=== PATIENT | female | born 1980 | race Caucasian/White ===

== ENCOUNTER 2018-08-28 07:35 | Emergency (ER) | payer OTHER ==
[2018-08-28] MEDS ORDERED: HYDROcodone/ACETAMIN 5-325 MG* 1 TAB PO ONE (08:13)
--- OUTSIDE RECORDS SUMMARY | 2018-08-28 08:26 | XMS REPORT ---
:1980 External Reference #:[id number] Author Organization [facility] Address [address] [place] [address] [place] [address] Phone [phone] Care Team Providers Name Role Phone Bird Dumont MD Primary Care Physician Unavailable Payers Type Date Identification Numbers Payment Provider Subscriber Commercial Policy Number: [id number] [employer] Insurance Will Cb GonzalezPang Group Number: [id number] [address] PayID: [id number] LivermoreSUSY Squires [phone] Medigap Part B Effective: Policy Number: Aet[employer] Insurance Johnnie Lopez 2016 [id number] Gee Expires: 2017 Group Number: [id number] [address] PayID: [id number] SUSY Ceballos [phone] Problems Date Description Provider Status Onset: 06/27/2018 Motion sickness, initial encounter Bird Dumont M.D. Active Onset: 06/27/2018 Mild recurrent major depression Bird Dumont M.D. Active Onset: 05/14/2015 Depressive disorder Bird Dumont M.D. Active Family History Date Family Member(s) Problem(s) Comments General Heart Disease General Diabetes Father Hypertension Father Diabetes Type II Father Hypercholesterolemia Paternal Grandmother due to Heart Disease () Maternal Grandfather due to Heart Disease () Maternal Grandmother due to Alcohol Related () Social History Type Date Description Comments Lives With Occupation Currently Working ETOH Use Denies alcohol use Recreational Drug Use Denies Drug Use Smoking Patient has never smoked Exercise Type/Frequency Exercises regularly Allergies, Adverse Reactions, Alerts Date Description Reaction Status Severity Comments 05/14/2015 Tetracycline active 05/14/2015 Erythromycin active 05/14/2015 Neomycin active 05/14/2015 Latex active Medications Medication Date Status Form Strength Qnty SIG Indications Ordering Provider Percocet 08/15/ Active Tablets 5-325mg 20tabs 1 tab by 2017 mouth F every 4-6 Charlie, hours as MD needed pain Percocet 08/03/ Active Tablets 5-325mg 30tabs 1 - 2 2017 tabs by F mouth Charlie, every 4 - MD 6 hours as needed for pain. Aspirin Ec 08/03/ Active Tablets DR 325mg 30tabs take 1 2017 tab by F mouth bid Charlie, every day MD x 14 days. with food. Keflex 08/03/ Active Capsules 500mg 21caps take 1 2017 tab by F mouth 3 Charlie, times a MD day x 7 days until finished. Bupropion HCL 05/14/ Active Tablets ER 150mg 90tabs take 3 F32.9 Bird ER (XL) 2014 24HR tablets Pachikara by mouth , M.D. every morning with food Citrucel / Active Tablets 500mg 2 tabs Unknown 0000 twice a day as needed Motrin Ib / Active Tablets 200mg 1-2 twice Unknown 0000 a day as needed prn Multi For Her / Active Tablets once a Unknown 0000 day Naproxen 00/ Active Tablets 250mg take 1 Unknown 0000 tab every 12 hours as needed for pain. Naproxen 03/24/ Hx Tablets 500mg 24tabs take one M75.51 Neal 2017 - tablet by F 07/31/ mouth Charlie, 2017 every 12 MD hours for 14 days. take with food. Amoxicillin/Cl 01/22/ Hx Tablets 875-125mg 20tabs 1 by Bird dobbs 2017 - mouth Pachikara Potassium 05/18/ twice a , M.D. 2017 day Naproxen 06/10/ Hx Tablets 500mg 60tabs 1 by M79.671 Neal 2016 - mouth F 07/18/ twice a Charlie, 2016 day as MD needed pain Amoxicillin/Cl 12/17/ Hx Tablets 875-125mg 20tabs take one J01.90 Dalton dobbs 2016 - tablet DENIZ Salas Potassium 12/27/ q12 hours 2017 for 10 days Fluticasone 12/17/ Hx Suspension 50mcg/Act 48gm 2 sprays J01.90 Dalton Propionate 2016 - each DENIZ Salas 04/07/ nostril 2016 qd. x 2 weeks Benzonatate 09/30/ Hx Capsules 100mg 30caps one by J06.9 Bisi 2015 - mouth Varn, 10/10/ three N.P. 2016 times daily as needed for cough Fluticasone 09/30/ Hx Suspension 50mcg/Act 9.900m 2 sprays J06.9 Bisi Propionate 2015 - l each Varn, 10/10/ nostril N.P. 2016 daily until well Escitalopram 08/24/ Hx Tablets 5mg 30tabs 1 by F32.9 Bird Oxalate 2015 - mouth Pachikara 12/17/ every day , M.D. 2017 x 1 week then 2 tab daily has not started yet Amoxicillin 11/22/ Hx Capsules 250mg 30caps 1 tab by J01.90 Chen 2015 - mouth 3 Londono, 04/23/ times per M.D. 2015 day every Wellbutrin XL / Hx Tablets ER 150mg 3 by Unknown 0000 - 12HR mouth 05/29/ every day 2014 Probiotic / Hx Capsules 1 by Unknown 0000 - mouth 06/26/ every day 2017 Medications Administered in Office Medication Date Status Form Strength Qnty SIG Indications Ordering Provider Depomedrol Administered Injection Jes 40MG 018 Marker, RPA-C Vital Signs Date Vital Result Comment 08/15/2018 Heart Rate 76 /min BP Systolic 126 mmHg BP Diastolic 86 mmHg Respiratory Rate 16 /min Body Temperature 97.7 F Pain Level 3 08/01/2018 Height 68 inches 5'8" Weight 124.00 lb BP Systolic 104 mmHg BP Diastolic 61 mmHg Respiratory Rate 17 /min Pain Level 4 BMI (Body Mass Index) 18.9 kg/m2 07/19/2018 Heart Rate 80 /min BP Systolic 116 mmHg BP Diastolic 78 mmHg Body Temperature 98.1 F Pain Level 2 06/27/2018 Height 68 inches 5'8" Weight 122.00 lb BP Systolic 100 mmHg BP Diastolic 68 mmHg BMI (Body Mass Index) 18.5 kg/m2 05/19/2018 Height 68 inches 5'8" Weight 125.00 lb Heart Rate 68 /min Respiratory Rate 12 /min Body Temperature 98.3 F Pain Level 5 BMI (Body Mass Index) 19.0 kg/m2 03/24/2018 Height 68 inches 5'8" Weight 125.00 lb Heart Rate 68 /min BP Systolic Sitting 84 mmHg BP Diastolic Sitting 56 mmHg Body Temperature 97.5 F BMI (Body Mass Index) 19.0 kg/m2 12/23/2017 Weight 122.00 lb Heart Rate 78 /min BP Systolic 110 mmHg BP Diastolic 62 mmHg Body Temperature 97.6 F O2 % BldC Oximetry 99 % 08/18/2017 Height 64 inches 5'4" Weight 119.00 lb Heart Rate 78 /min BP Systolic Sitting 104 mmHg BP Diastolic Sitting 62 mmHg Body Temperature 96.5 F O2 % BldC Oximetry 97 % BMI (Body Mass Index) 20.4 kg/m2 06/30/2017 Height 64 inches 5'4" Weight 122.00 lb BP Systolic 108 mmHg BP Diastolic 76 mmHg Respiratory Rate 20 /min Pain Level 3 BMI (Body Mass Index) 20.9 kg/m2 06/10/2017 Height 64 inches 5'4" Weight 122.00 lb Heart Rate 64 /min BP Systolic 102 mmHg BP Diastolic 64 mmHg Respiratory Rate 14 /min Pain Level 3 BMI (Body Mass Index) 20.9 kg/m2 04/07/2017 Heart Rate 91 /min BP Systolic Sitting 106 mmHg BP Diastolic Sitting 72 mmHg Pain Level 5 R lower back O2 % BldC Oximetry 98 % 12/17/2016 Height 64 inches 5'4" Heart Rate 89 /min BP Systolic 90 mmHg BP Diastolic 58 mmHg Body Temperature 97.3 F O2 % BldC Oximetry 99 % 09/30/2016 Weight 124.00 lb Heart Rate 77 /min BP Systolic Sitting 100 mmHg BP Diastolic Sitting 72 mmHg Body Temperature 96.7 F O2 % BldC Oximetry 98 % 08/24/2016 Weight 124.38 lb Heart Rate 88 /min BP Systolic 90 mmHg BP Diastolic 70 mmHg Body Temperature 97.6 F O2 % BldC Oximetry 98 % 04/23/2016 Height 64 inches 5'4" Weight 123.12 lb Heart Rate 81 /min BP Systolic Sitting 112 mmHg BP Diastolic Sitting 60 mmHg Body Temperature 97.5 F O2 % BldC Oximetry 99 % BMI (Body Mass Index) 21.1 kg/m2 11/22/2015 Weight 123.75 lb Heart Rate 72 /min BP Systolic Sitting 102 mmHg BP Diastolic Sitting 72 mmHg Body Temperature 97.4 F O2 % BldC Oximetry 98 % 10/02/2015 Weight 125.00 lb Heart Rate 79 /min BP Systolic Sitting 94 mmHg BP Diastolic Sitting 66 mmHg Body Temperature 95.0 F 08/07/2015 Height 64 inches 5'4" Weight 121.00 lb Pain Level 6 BMI (Body Mass Index) 20.8 kg/m2 07/31/2015 Height 64 inches 5'4" Weight 123.50 lb Heart Rate 71 /min BP Systolic Sitting 102 mmHg BP Diastolic Sitting 60 mmHg Respiratory Rate 12 /min Body Temperature 97.0 F Pain Level 5 O2 % BldC Oximetry 96 % BMI (Body Mass Index) 21.2 kg/m2 05/29/2015 Height 64 inches 5'4" Weight 121.50 lb Heart Rate 58 /min BP Systolic Sitting 100 mmHg BP Diastolic Sitting 60 mmHg Body Temperature 97.2 F O2 % BldC Oximetry 94 % BMI (Body Mass Index) 20.9 kg/m2 05/14/2015 Height 64 inches 5'4" Weight 119.75 lb Heart Rate 73 /min BP Systolic Sitting 110 mmHg BP Diastolic Sitting 70 mmHg O2 % BldC Oximetry 98 % BMI (Body Mass Index) 20.6 kg/m2 Results Test Date Test Result H/L Range Note Laboratory test finding 12/28/2017 Cytology SEE RESULT BELOW 1 Comp Metabolic Panel 05/22/2015 Sodium 138 mmol/L 133-145 Potassium 4.3 mmol/L 3.5-5.0 Chloride 105 mmol/L 101-111 Co2 Carbon Dioxide 30 mmol/L 22-32 Anion Gap 3 mmol/L 2-11 Glucose 79 mg/dL 70-100 Blood Urea Nitrogen 17 mg/dL 6-24 Creatinine 0.73 mg/dL 0.51-0.95 BUN/Creatinine Ratio 23.3 High 8-20 Calcium 9.0 mg/dL 8.6-10.3 Total Protein 6.3 g/dL Low 6.4-8.9 Albumin 4.1 g/dL 3.2-5.2 Globulin 2.2 g/dL 2-4 Albumin/Globulin Ratio 1.9 1-3 Total Bilirubin 0.40 mg/dL 0.2-1.0 Alkaline Phosphatase 72 U/L 34-104 Alt 17 U/L 7-52 Ast 18 U/L 13-39 Egfr Non- 90.2 >60 Egfr 116.0 >60 2 Laboratory test finding 05/22/2015 TSH (Thyroid Stim Horm) 1.83 ?IU/mL 0.34-5.60 1 SEE RESULT BELOW Name: JOHNNIE FLYNN : [address]: Eboni Strauss MD Acct: [id number] Unit: [id number] AGE: 37 Location: [facility] Re12/28/17 SEX: F Status: REG REF SPEC: [id number] GARIMA: 12/28/17-1501 [facility] DR: Eboni Strauss MD REQ: [id number] RECD: 12/29/17-1316 STATUS: LUCIAN FAITH DR: Bird Dumont MD _ ORDERED: TP IMAGE ANAL, HPV/Thin Prep COMMENTS: [id number] Negative for Intraepithelial lesion or Malignancy A. Ectocervical/Endocervical Specimen Adequacy: Satisfactory of evaluation Transformation zone component identified Patient Information: HPV: High risk HPV RNA testing regardless of pap results. Actual Specimen Date: 12/28/17 Last Menstrual Date: 12/24/17 Spec Date if unknown: unknown Date Time Test Result Flag (u) Normal Range 12/28/17 1501 @ HPV RNA Negative Negative @ @ The high-risk HPV types detected by the assay include: 16, @ 18, 31, 33, 35, 39, 45, 51, 52, 56, 58, 59, 66, and 68. Signed (signature on file) OLIVIA Cisneros (ASCP) 12/31 1125 This Pap test was evaluated with the assistance of the Apnex Medicalp Test Imaging System. Due to cytologic findings at the news anchor microscope, comprehensive manual rescreening by a Conductor Sleeping Car may be required. The Pap Smear is a screening test designed to aid in the detection of premalignant and malignant conditions of the uterine cervix. It is not a diagnostic procedure and should not be used as the sole means of detecting cervical cancer. Both false- positive and false- negative reports do occur. Depending on your risk status, a Pap smear should be obtained and evaluated every 1-3 years. END OF REPORT DEPARTMENT OF PATHOLOGY, [address] [place] [address] Bret Martins M.D. Director [facility] # [id number] 2 Because ethnic data is not always readily available, this report includes an eGFR for both -Americans and non- Americans. The National Kidney Disease Education Program (NKDEP) does not endorse the use of the MDRD equation for patients that are not between the ages of 18 and 70, are , have extremes of body size, muscle mass, or nutritional status, or are non- or non-. According to the National Kidney Foundation, irrespective of diagnosis, the stage of the disease is based on the level of kidney function: Stage Description GFR(mL/min/1.73 m(2)) 1 Kidney damage with normal or decreased GFR 90 2 Kidney damage with mild decrease in GFR 60-89 3 Moderate decrease in GFR 30-59 4 Severe decrease in GFR 15-29 5 Kidney failure <15 (or dialysis) Procedures Date CPT Code Description Status 08/03/2018 79894 Arthroscopy,Shoulder Decompression Of Subacromial Space Completed W/Acromio 08/03/2018 01409 Arthroscopy,Shoulder Decompression Of Subacromial Space Completed W/Acromio 08/03/2018 93830 Arthroscopy,Shoulder Decompression Of Subacromial Space Completed W/Acromio 08/03/2018 11973 Arthroscopy,Shoulder,Distal Claviculectomy Incl Dist Completed Articular SR 08/03/2018 65366 Arthroscopy,Shoulder,Distal Claviculectomy Incl Dist Completed Articular SR 08/03/2018 00674 Arthroscopy,Shoulder,Distal Claviculectomy Incl Dist Completed Articular SR 08/03/2018 45758 Tenodesis Biceps Long Tendon Completed 08/03/2018 66127 Tenodesis Biceps Long Tendon Completed 08/03/2018 54973 Tenodesis Biceps Long Tendon Completed 03/24/2018 85269 Inject/Drain Joint/Bursa Major W/O US Completed Encounters Type Date Location Provider CPT E/M Dx Office Visit 08/01/2018 [facility] Neal Guerra, 68268 M19.011 2:00p Of [place] [facility] M75.41 M54.5 S30.0xxA Office Visit 07/19/2018 3:30p [facility] Neal Guerra, 58854 M19.011 Of [place] [facility] M75.51 M75.41 Office Visit 06/27/2018 1:40p [facility] [address] Internal Bird Dumont M.D. 72217 F33.0 Medicine - [address] T75.3xxA Office Visit 05/19/2018 11:30a [facility] Neal Guerra, 51130 M75.51 [place] ANN M79.671 Office Visit 03/24/2018 8:15a [facility] Neal Guerra, 12637 M75.51 [place] ANN M79.671 Office Visit 12/23/2017 3:20p [facility] [address] Internal Bird Dumont, 00261 F32.9 Medicine - [address] M.DDanilo Office Visit 08/18/2017 9:00a [facility] [address] Internal Zain Bautista, 68834 J06.9 Medicine - [place] M.DDanilo Office Visit 06/30/2017 3:30p [facility] Neal Guerra 48569 M79.671 Of [place] ANN Office Visit 06/10/2017 9:30a [facility] Neal Guerra 11706 M79.671 Of [place] ANN M72.2 Office Visit 04/07/2017 8:40a [facility] [address] Internal Medicine Bisi Edwards, N.P. 78053 F32.9 - [place] M54.5 K58.0 Office Visit 12/17/2016 10:40a [facility] [address] [place] [address] J01.90 - [place] Office Visit 09/30/2016 11:00a [facility] [address] Internal Medicine Bisi Edwards, N.P. 63179 J06.9 - [place] Office Visit 08/24/2016 1:40p [facility] [address] Internal Medicine Bird Dumont [address]35 F32.9 - [address] M.D. Z12.4 Office Visit 04/23/2016 8:40a [facility] [address] Internal Bird Dumont M.D. 91871 F32.9 Medicine - [address] Z13.220 L98.9 M54.5 Office Visit 11/22/2015 3:40p [facility] [address] Internal Medicine Chen Londono M.D. 67035 J01.90 - [place] Office Visit 10/02/2015 9:20a [facility] [address] Internal Medicine Bird Dumont 99230 M25.562 - [place] Amaya F32.9 Z13.220 B30.9 Office Visit 08/07/2015 3:00p [facility] Of Yin James M.D. 14728 M25.562 C.M.ADanilo Office Visit 07/31/2015 10:20a [facility] [address] Internal Medicine Bird Dumont, 62494 M25.562 - Kim[place] Amaya F32.9 H61.21 Office Visit 05/29/2015 3:00p [facility] [address] Internal Medicine Bird Dumont M.D. 32360 311 - Kimo 719.46 Office Visit 05/14/2015 3:00p [facility] [address] Internal Medicine Bird Dumont M.D. 35471 311 - Kim[place] 564.1 719.46 Plan of Care Future Appointment(s):08/31/2018 2:00 pm - Neal Guerra MD at [facility] C.M.ADanilo12/27/2018 8:40 am - Bird Dumont M.D. at [facility] [address] Internal Medicine - [address]08/15/2018 - Neal Guerra, MDM19.011 Primary osteoarthritis, right shoulderFollow up:Follow up: in 2-4 oiiyoY77.81 Other shoulder lesions, right akbraavpO51.21 Bicipital tendinitis, right cgqryzwqU60.41 Impingement syndrome of right shoulder
--- OUTSIDE RECORDS SUMMARY | 2018-08-28 08:26 | XMS REPORT ---
:1980 External Reference #:[id number] Author Organization [facility] Address [address] [place] [address] [place] [address] Phone [phone] Care Team Providers Name Role Phone Bird Dumont MD Primary Care Physician Unavailable Payers Type Date Identification Numbers Payment Provider Subscriber Commercial Policy Number: [id number] [employer] Will Cb GonzalezPang Group Number: [id number] [address] PayID: [id number] MontgomerySUSY Squires [phone] Medigap Part B Effective: Policy Number: [employer] Insurance Johnnie Lopez 2016 [id number] Gee Expires: 2017 Group Number: [id number] [address] PayID: [id number] SUSY Ceballos [phone] Problems Date Description Provider Status Onset: 06/27/2018 [...] Form Strength Qnty SIG Indications Ordering Provider Bupropion HCL 05/14/ Active Tablets ER 150mg [...] Tablets once a Unknown 0000 day Naproxen / Active Tablets 250mg take 1 Unknown 0000 tab every 12 hours as needed for pain. Naproxen 03/24/ Hx Tablets 500mg 24tabs take one M75.51 Neal 2017 - tablet by F 07/31/ mouth Charlie, 2017 every 12 MD hours for 14 days. take with food. Amoxicillin/Cl 01/22/ Hx Tablets 875-125mg 20tabs 1 by [place] rinku 2017 - mouth Pachikara Potassium 05/18/ twice a , M.D. 2017 day Naproxen 06/10/ Hx Tablets 500mg 60tabs 1 by M79.671 Neal 2016 - mouth F 07/18/ twice a Charlie, 2016 day as MD needed pain Amoxicillin/Cl 12/17/ Hx Tablets 875-125mg 20tabs take one J01.90 Dalton avulanate 2016 - tablet DENIZ Salas Potassium 12/27/ q12 hours 2017 for 10 days Fluticasone 12/17/ Hx Suspension 50mcg/Act 48gm 2 sprays J01.90 Dalton Propionate 2017 - each DENIZ Salas 04/07/ nostril 2017 qd. x 2 weeks Benzonatate 09/30/ Hx Capsules 100mg 30caps one by Celeste06Alverto Mathews 2016 - mouth Varn, 10/10/ three N.P. 2016 times daily as needed for cough Fluticasone 09/30/ Hx Suspension 50mcg/Act 9.900m 2 sprays Celeste06.Michael Mathews Propionate 2016 - l each Varn, 10/10/ nostril N.P. 2016 daily until well Escitalopram 08/24/ Hx Tablets 5mg 30tabs 1 by F32.9 Bird Oxalate 2016 - mouth Pachikara 12/17/ every day , [...] 1 by Unknown 0000 - mouth 06/26/ day 2017 Medications Administered in Office Medication Date Status Form Strength Qnty SIG Indications Ordering Provider Depomedrol Administered Injection Jes 40MG 018 Marker, RPA-C Vital Signs Date Vital Result Comment 08/01/2018 Height 68 inches 5'8" Weight 124.00 [...] [address]: Eboni Strauss MD Acct: [id number] Unit: [id number] AGE: 37 Location: [facility] Re12/28/17 SEX: F Status: REG REF SPEC: [id number] GARIMA: 12/28/17 [facility] DR: Eboni Strauss MD REQ: [id number] RECD: 12/29/17 STATUS: LUCIAN FAITH DR: Bird Dumont MD _ ORDERED: TP IMAGE ANAL, HPV/Thin Prep COMMENTS: [id number] Negative for Intraepithelial lesion or Malignancy A. [...] 66, and 68. Signed (signature on file) Thien OLIVIA Leahy (ASCP) 12/31 1128 This Pap test was evaluated with the assistance of the Arch[employer]'s[employer] Test Imaging System. Due to cytologic findings at the crew supervisor microscope, comprehensive manual rescreening by a Waistline Joiner may be required. The Pap Smear is [...] years. END OF REPORT DEPARTMENT OF PATHOLOGY, [address] [place] [address] Bret Martins M.D. Director [facility] # [id number] 2 Because ethnic data is not always [...] dialysis) Procedures Date CPT Code Description Status 03/24/2018 01071 Inject/Drain Joint/Bursa Major W/O US Completed Encounters Type Date Location Provider CPT E/M Dx Office Visit 07/19/2018 [facility] Neal Guerra, 53071 M19.011 3:30p [facility] [place] [facility] M75.51 M75.41 Office Visit 06/27/2018 1:40p [facility] Internal Bird Dumont M.D. 29299 F33.0 Medicine - [address] T75.3xxA Office Visit 05/19/2018 11:30a [facility] Neal Shelly Charlie, 44346 M75.51 [place] ANN M79.671 Office Visit 03/24/2018 8:15a [facility] Neal Shelly Charlie, 20043 M75.51 [place] ANN M79.671 Office Visit 12/23/2017 3:20p [facility] Internal Bird Dumont, 07049 F32.9 Medicine - [place] Amaya Office Visit 08/18/2017 9:00a [facility] Internal Zain Bautista 51509 J06.9 Lionel - [place] Amaya Office Visit 06/30/2017 3:30p [facility] Neal Guerra 17121 M79.671 Of [place] ANN Office Visit 06/10/2017 9:30a [facility] Neal Bravo Charlie 81099 M79.671 Of [place] ANN M72.2 Office Visit 04/07/2017 8:40a [facility] Internal Medicine Bisi Edwards, N.P. 69089 F32.9 - [place] M54.5 K58.0 Office Visit 12/17/2016 10:40a [facility] [place] [address] J01.90 - [place] Office Visit 09/30/2016 11:00a [facility] Internal Medicine Bisi Edwards, N.P. 36120 J06.9 - [place] Office Visit 08/24/2016 1:40p [facility] Internal Medicine Bird Dumont 33637 F32.9 - [place] Amaya Z12.4 Office Visit 04/23/2016 8:40a [facility] Internal Bird Dumont M.D. 28341 F32.9 Medicine - [address] Z13.220 L98.9 M54.5 Office Visit 11/22/2015 3:40p [facility] Internal Medicine Chen Londono M.D. 69951 J01.90 - [place] Office Visit 10/02/2015 9:20a [facility] Internal Medicine Bird Dumont, 30941 M25.562 - Kimo Amaya F32.9 Z13.220 B30.9 Office Visit 08/07/2015 3:00p [facility] Yin James M.D. 78560 M25.562 C.M.A. Office Visit 07/31/2015 10:20a [facility] Internal Medicine Bird Dumont, 68081 M25.562 - Kimo Amaya F32.9 H61.21 Office Visit 05/29/2015 3:00p [facility] Internal Medicine Bird Dumont M.D. 13489 311 - [place] 719.46 Office Visit 05/14/2015 3:00p [facility] Internal Medicine Bird Dumont M.D. 16924 311 - [place] 564.1 719.46 Plan of Care Future Appointment(s):08/03/2018 7:30 am - Harley Durán PA-C at [facility]08/03/2018 7:30 am - Neal Guerra MD at [facility]08/15/2018 1:45 pm - Neal Guerra MD at [facility]12/27/2018 8:40 am - Bird Dumont M.D. at [facility] Internal Medicine - [address]08/01/2018 - Neal Guerra, MDM19.011 Primary osteoarthritis, right shoulderFollow up:to OR this weekM75.41 Impingement syndrome of right ecpudouvK77.5 Low back pain
[2018-08-28 08:46] LABS: ABS Basophils 0.1 10^3/ul (0-0.2); ABS Eosinophils 0.2 10^3/ul (0-0.6); ABS Monocytes 0.2 10^3/ul (0-0.8); ABS Neutrophils 1.8 10^3/ul (1.5-7.7); ABS Nucleated RBC 0 10^3/ul; Eosinophil % 6.8 % (0-6); Hematocrit 39 % (35-47); Hemoglobin 13.2 g/dl (12.0-16.0); Lymphocyte % 29.5 % (25-47); Mean Corpuscular HGB Conc 34 g/dl (31-36); Mean Corpuscular Hemoglobin 31 pg (27-31); Mean Corpuscular Volume 92 fL (80-97); Mean Platelet Volume 7.6 fL (7.4-10.4); Nucleated Red Blood Cells % 0; Platelet Count 214 10^3/ul (150-450); Red Blood Count 4.25 10^6/ul (4.00-5.40); Red Cell Distribution Width 14 % (10.5-15); White Blood Count 3.3 10^3/ul (3.5-10.8)
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
[2018-08-28 09:03] LABS: EGFR Non-African American 83.5 (>60)
[2018-08-28] MEDS ORDERED: Acetaminophen TAB* 325 MG PO ONE (09:38)
[2018-08-28] MEDS ORDERED: Cyclobenzaprine TAB* 10 MG PO ONE (09:38)
[2018-08-28 10:47] VITALS: BP 115/81
== END 2018-08-28 10:46 | disposition home or self-care (01) ==
LOC: ED 07:35
DX: M25.562 Pain in left knee (principal)
CPT/HCPCS: 36415; 80048; 83605; 85025; 85652; 86140; 99283; A9270-GY

== ENCOUNTER 2018-09-07 07:33 | Day surgery (SDC) | payer OTHER ==
[~2018-09-07 07:33] MED LIST: Buffered Lidocaine 0.9% SYRIN* 5 ML/SYR SYRINGE INTRADERM ONE; Dexamethasone TAB* 4 MG PO ONE; DiMENhydriNATE IV* 50 MG/ML VIAL IV PUSH PRN; Famotidine IV* 10 MG/ML 2 ML (20 mg) IV ONE; Morphine VIAL* 4 MG/ML VIAL (1 ml vial) IV PRN; Naloxone* 0.4 MG/ML 1 ML VIAL IV PRN; Ondansetron TAB* 4 MG PO ONE; PROCHLORPERAZINE INJ 5 MG/ML 2 ML VIAL IV PRN
[2018-09-07] MEDS ORDERED: Famotidine IV* 10 MG/ML 2 ML (20 mg) ONE (07:59)
[2018-09-07] MEDS ORDERED: Ondansetron ODT TAB* 4 MG ONE (07:59)
[2018-09-07] MEDS ORDERED: Dexamethasone TAB* 4 MG ONE (08:00)
[2018-09-07] MEDS ORDERED: ceFAZolin 2 GM PREMIX in ORs 2 GM/50 ML BAG IVPB ONE (08:00)
[2018-09-07] MEDS ORDERED: Buffered Lidocaine 0.9% SYRIN* 5 ML/SYR SYRINGE ONE (08:00)
[2018-09-07] MEDS ORDERED: fentaNYL* 50 MCG/ML 2 ML VIAL (100 MCG VIAL) ONE ×2 (08:24→11:31)
[2018-09-07] MEDS ORDERED: KETAMINE HCL* 50 MG/ML 10 ML VIAL ONE (08:24)
[2018-09-07] MEDS ORDERED: Midazolam* 1 MG/ML 5 ML VIAL (5 MG) ONE (08:24)
[2018-09-07] MEDS ORDERED: EPINEPHRINE 1 MG/ML 1 ML VIAL ONE (09:30)
[2018-09-07] MEDS ORDERED: Bupivacaine 0.5% W/EPI SDV* 30 ML VIAL ONE (09:30)
[2018-09-07] MEDS ORDERED: Propofol* 10 MG/ML 20 ML BTL IV PUSH ONE (10:22)
[2018-09-07] MEDS ORDERED: PROCHLORPERAZINE INJ 5 MG/ML 2 ML VIAL ONE (10:22)
[2018-09-07] MEDS ORDERED: Ketorolac INJ* 30 MG/ML 1 ML VIAL ONE (10:22)
[2018-09-07] MEDS ORDERED: Lidocaine 2% PF * 5 ML VIAL ONE (10:23)
[2018-09-07] MEDS ORDERED: EPHEDrine (Pressors)* 50 MG/ML VIAL ONE (10:23)
[2018-09-07] MEDS ORDERED: Morphine VIAL* 10 MG/ML 1 ML VIAL ONE (10:59)
[2018-09-07] MEDS ORDERED: Flumazenil* 0.1 MG/ML 5 ML MDV ONE (11:08)
[2018-09-07] MEDS: fentaNYL* 50 MCG/ML 2 ML VIAL (100 MCG VIAL) IV PRN ×4 (11:31→11:57)
[2018-09-07] MEDS: oxyCODONE/Acetamin 5/325 MG* TAB PO PRN ×2 (11:38→13:00)
[2018-09-07] MEDS ORDERED: oxyCODONE/Acetamin 5/325 MG* TAB ONE ×2 (11:38→12:20)
[2018-09-07 13:00] VITALS: BP 104/73
--- NOTE | 2018-09-12 04:11 | OP ---
DATE OF OPERATION: 09/07/18 - [facility] DATE OF : 78 SURGEON: Neal Guerra MD JIG AND FIXTURE BUILDER APPRENTICE: TEOFILO Starks. A physician regulatory assistant was required for the length of the procedure for assistance with positioning, instrumentation, and closure. ANESTHESIOLOGIST: Dr. Veto Carroll. ANESTHESIA: General anesthesia, local anesthesia approximately 15 cc of 0.5% Marcaine with epinephrine in the subcutaneous tissues about the skin incisions. PRE-OP DIAGNOSIS: Left knee lateral meniscus tear, displaced. POST-OP DIAGNOSIS: Left knee lateral meniscus tear, displaced. OPERATIVE PROCEDURE: 1. Left knee arthroscopic lateral meniscus repair, all-inside. 2. Left knee arthroscopic excision of medial plica. 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 For 15 years previous, she had had some minimal catching or temporary locking of that knee. MRI was ordered by partner and showed a displaced bucket handle meniscus tear of the lateral meniscus. The patient saw me in clinic and opted for surgery. I booked the patient for surgery, treatment of lateral meniscus, meniscus repair of possible but otherwise partial lateral meniscectomy. I discussed technical aspects of both surgeries and the timeline for recovery postoperatively. ANTIBIOTICS: 2 g Ancef IV. IV FLUIDS: See Anesthesia note. TOURNIQUET TIME: 48 minutes at 300 mmHg. [id number] TIME: 44 minutes. ARTHROSCOPY FLUID UTILIZED: Unavailable at this time. SPECIMEN: None. IMPLANTS: Hein [employer] Nephew Fast-Fix 360 x4. ESTIMATED BLOOD LOSS: Minimal. DESCRIPTION OF PROCEDURE: In preoperative holding, the patient signed a written consent. The operative extremity was marked in preoperative holding. The patient was taken back to the operating room and placed supine on the operating room table. Sedated and intubated. Tourniquet was placed about the left proximal thigh. Left distal thigh was placed in a circumferential thigh duque. Table was elevated and foot of the table was dropped. Left lower extremity was prepped and draped. Surgical time-out was performed. Esmarch was applied and the tourniquet was elevated. Anterolateral knee arthroscopy portal established using standard technique. Diagnostic arthroscopy was commenced. The patient had some synovitis bulging into the patellofemoral compartment. The patient had a pronounced medial plica noted. I next moved to the medial compartment. No meniscal tear or articular cartilage damage there. ACL and PCL intact. I next moved to the lateral compartment. The patient had a clearly displaced tear of the posterior horn and the posterior body of the lateral meniscus. She had grade 1 changes throughout the lateral tibial plateau with fraying of the articular cartilage. I established an anteromedial knee arthroscopy portal under direct visualization. I then entered an arthroscopic shaver and debrided the ligamentum mucosum and some synovitis anteriorly. I next moved my shaver to the anteromedial portal and through the anterolateral portal, used an arthroscopic probe to reduce the meniscus. Reduced nicely. The posterior root was clearly intact and attached. I entered a small circular rasp and rasped the tear about the the posterior horn of the meniscus. I next placed my Hein [employer] Nephew all-inside 360 Fast-Fix anchors. I placed 3 in the posterior horn. These were vertical mattress or oblique mattress stitches. The meniscus reduced nicely. I then placed a fourth all-inside anchor into the posterior body just anterior to the popliteal hiatus. I placed this from an anteromedial portal. The meniscus repair was stable to manipulation with an arthroscopic probe. It appeared well positioned. I next moved back to the patellofemoral compartment. I debrided the medial plica with the arthroscopic shaver. I next removed fluid and instruments from the knee joint. I closed the skin incisions with [id number] stitches using nylon 3-0 suture. 15 cc of local anesthesia injected into subcutaneous tissue. Xeroform, 4x4's, ABDs, sterile Webril, Ramsey bandage. Knee brace locked in extension. I then locked it to 0 to 60 degrees. Tourniquet dropped. The patient was awakened and transferred to the PACU. DISPOSITION: The patient was discharged home on Percocet as needed for pain control and aspirin b.i.d. x2 weeks for DVT prophylaxis. She was to follow up with me in 10 to 14 days postoperatively in clinic. Wound care instructions provided. The patient is to start physical therapy immediately. The patient will be toe- touch weight-bearing with a limit from 0 to 60 degrees of knee flexion. At either 2 or 4 weeks, I will advance her to 0 to 90 degrees of knee flexion. Depending on how the patient advances and what her effusion looks like , I may keep her toe-touch weight-bearing for as long as 6 weeks postoperatively. She will follow up with me in 10 to 14 days postoperatively. [id number]/[facility] #: [id number] MTDTriny
== END 2018-09-07 13:03 | disposition home or self-care (01) ==
LOC: OR 07:33
PROVIDERS: ATTEND Orthopaedic Surgery
DX: S83.252A Bucket-handle tear of lateral meniscus, current injury, left knee, initial encounter (principal); X50.0XXA Overexertion from strenuous movement or load, initial encounter; Y92.9 Unspecified place or not applicable
CPT/HCPCS: 81025; A9270-GY; J0690; J0780; J1885; J2250; J2270; J2704; J3010; J8540

== ENCOUNTER 2018-09-16 03:04 | Emergency (ER) | payer OTHER ==
[2018-09-16] MEDS ORDERED: NS 0.9% 1000 ML* 1,000 ML IV ONE (03:33)
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
[2018-09-16 03:55] LABS: ABS Basophils 0.1 10^3/ul (0-0.2); ABS Eosinophils 0.2 10^3/ul (0-0.6); ABS Lymphocytes 1.4 10^3/ul (1.0-4.8); ABS Monocytes 0.2 10^3/ul (0-0.8); ABS Neutrophils 1.9 10^3/ul (1.5-7.7); ABS Nucleated RBC 0 10^3/ul; Eosinophil % 5.6 %; Hematocrit 34 % (35-47); Hemoglobin 11.6 g/dl (12.0-16.0); Lymphocyte % 36.5 %; Mean Corpuscular HGB Conc 34 g/dl (31-36); Mean Corpuscular Hemoglobin 31 pg (27-31); Mean Corpuscular Volume 91 fL (80-97); Mean Platelet Volume 7.4 fL (7.4-10.4); Nucleated Red Blood Cells % 0.1; Platelet Count 242 10^3/ul (150-450); Red Blood Count 3.75 10^6/ul (4.00-5.40); Red Cell Distribution Width 14 % (10.5-15); White Blood Count 3.8 10^3/ul (3.5-10.8)
[2018-09-16 04:03] LABS: INR 1.1 (0.77-1.02)
[2018-09-16 04:12] LABS: EGFR Non-African American 77.6 (>60)
[2018-09-16] MEDS ORDERED: Iohexol 350* (CONTRAST) 500 ML MDV IV ONE (04:32)
[2018-09-16 06:30] VITALS: BP 122/74
== END 2018-09-16 06:15 | disposition home or self-care (01) ==
LOC: ED 03:04
DX: R42 Dizziness and giddiness (principal); Z86.718 Personal history of other venous thrombosis and embolism
CPT/HCPCS: 36415; 71275; 80053; 83605; 83880; 84484; 84702; 85025; 85610; 85730; 93005; 96361; 96374; 99283; Q9967

== ENCOUNTER 2019-12-30 18:57 | Emergency (ER) | payer OTHER ==
[2019-12-30 20:15] VITALS: BP 134/82
[2019-12-30 20:17] LABS: Influenza A Molecular Negative (Negative); Influenza B Molecular Negative (Negative)
[2019-12-30] MEDS ORDERED: Ondansetron ODT TAB* 4 MG PO ONE (21:00)
[2019-12-30] MEDS ORDERED: Acetaminophen TAB* 325 MG PO ONE (21:01)
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
== END 2019-12-30 22:45 | disposition home or self-care (01) ==
LOC: UCEAST 18:57
DX: B34.9 Viral infection, unspecified (principal); M79.10 Myalgia, unspecified site; F41.8 Other specified anxiety disorders; Z88.1 Allergy status to other antibiotic agents; Z91.040 Latex allergy status; Z79.899 Other long term (current) drug therapy
CPT/HCPCS: 87651; 99212; A9270-GY; G0463

== ENCOUNTER 2020-01-10 14:19 | Emergency (ER) | payer OTHER ==
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
[2020-01-10 17:13] VITALS: BP 124/86
== END 2020-01-10 17:11 | disposition home or self-care (01) ==
LOC: ED 14:19
DX: R04.2 Hemoptysis (principal); B97.29 Other coronavirus as the cause of diseases classified elsewhere; F41.9 Anxiety disorder, unspecified
CPT/HCPCS: 71045; 99282